=== PATIENT | male | born 1975 | race Caucasian/White ===

== ENCOUNTER 2017-03-02 06:58 | Day surgery (SDC) | payer BC ==
--- NOTE | 2017-02-26 14:08 | GHP ---
[f rep st] PREOP HISTORY AND PHYSICAL DATE OF ADMISSION: 03/02/2017 DATE OF PROCEDURE: 03/02/2017. PREOP DIAGNOSIS: Right inguinal hernia. HISTORY OF PRESENT ILLNESS: The patient is a 41-year-old man who presented to our clinic complaining of a right inguinal hernia. He denies any bulging in the area but felt discomfort in his right groi n since December 2016. He denies any fevers, chills, nausea, vomiting, change in bowel habits, or ivelisse p abdominal pain. He denies any overlying skin changes to the area. He did do some recent heavy lif ting when remodeling a home. This would be his first occurrence. PAST MEDICAL HISTORY: Plantar fasciitis. PAST SURGICAL HISTORY: Arthroscopic shoulder surgery. ALLERGIES: No known drug allergies. FAMILY HISTORY: Mother with breast cancer, heart disease. Father with skin cancer. SOCIAL HISTORY: He denies tobacco or recreational drug use. He does drink alcohol. 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 REVIEW OF SYSTEMS: Ten-point review of systems negative, aside from HPI. PHYSICAL EXAMINATION: GENERAL: Well-developed, well-nourished man, in no acute distress. HEENT: N ormocephalic, atraumatic. No hearing deficits. Pupils equal and round. No scleral icterus. Mucous membranes moist. NECK: Trachea midline. RESPIRATORY: Clear to auscultation bilaterally. No incr eased work of breathing. CARDIOVASCULAR: Regular rate and rhythm. No peripheral edema. ABDOMEN: Soft, nondistended, nontender. : Normal external male genitalia. Testes descended bilaterally. Reducible right inguinal hernia. No evidence of a left inguinal hernia on exam. NEURO: Grossly int act. PSYCH: Mood and affect normal. SKIN: Warm and dry. ASSESSMENT/PLAN: A 41-year-old man with a right inguinal hernia. We discussed open versus laparosco pic approach. We discussed risks of surgery, including, but not limited to, heart attack, stroke, bl ood clots or . We discussed risk of infection, bleeding, damage to surrounding structures, incl uding testicle swelling or recurrence. He understands the risks and would like to proceed. He will have a laparoscopic right, possible bilateral inguinal hernia repair with mesh. The patient was rimma tionally seen with Dr. Angela Mohr, who agrees to the above impression and plan. /[id number]/MODL
[2017-03-02] MEDS ORDERED: CHLORHEXIDINE GLUC HIBICLENS 118 ML BTL TP ONE (07:18)
[2017-03-02] MEDS ORDERED: ceFAZolin 2 GM/DEXTROSE 100 ML IV ONE (07:22)
[2017-03-02] MEDS ORDERED: LR 1,000 ML IV ONE (07:22)
[2017-03-02] MEDS ORDERED: LIDOCAINE 1% 2 ML INJ ID PRN (07:22)
--- NOTE | 2017-03-02 07:25 | PDHPUP ---
History & Physical Update H&P update statement: This history and physical update is based on an assessment of the patient which was completed after admission or registration (within 24 hours), but prior to the surgery/procedure. H&P update: H&P reviewed & patient examined, no change in patient's condition since H&P completed
[2017-03-02] MEDS ORDERED: BUPIVACAINE 0.5% 30 ML SDV ONE (08:08)
[2017-03-02] MEDS ORDERED: MIDAZOLAM 2 MG/2 ML VIAL ONE (08:59)
[2017-03-02] MEDS ORDERED: MIDAZOLAM 2 MG/2 ML VIAL IVP ONE (08:59)
--- NOTE | 2017-03-02 09:00 | PDANEPAE ---
ANE History of Present Illness patient presents for hernia surgery ANE Past Medical History - Cardiovascular History Hx Hypertension: No Hx Arrhythmias: No Hx Chest Pain: No Hx Coronary Artery / Peripheral Vascular Disease: No Hx CHF / Valvular Disease: No Hx Palpitations: No - Pulmonary History Hx COPD: No Hx Asthma/Reactive Airway Disease: No Hx Recent Upper Respiratory Infection: No Hx Oxygen in Use at Home: No Hx Sleep Apnea: No Sleep Apnea Screening Result - Last Documented: Negative - Neurologic History Hx Cerebrovascular Accident: No Hx Seizures: No Hx Dementia: No - Endocrine History Hx Diabetes: No - Renal History Hx Renal Disorders: No - Liver History Hx Hepatic Disorders: No - Neurological & Psychiatric Hx Hx Neurological and Psychiatric Disorders: No - Cancer History Hx Cancer: No - Congenital Disorder History Hx Congenital Disorders: No - GI History Hx Gastrointestinal Disorders: No - Chronic Pain History Chronic Pain: No - Surgical History Prior Surgeries: 2016 right shoulder labrum repair ANE Review of Systems Review of Systems: - Exercise capacity METS (RN): 6 METS ANE Patient History - Allergies Allergies/Adverse Reactions: No Known Allergies Allergy (Unverified 02/21/17 10:13) - Home Medications Home medications: home medication list seen and reviewed Home Medications: IBUPROFEN PRN 02/21/17 [Last Taken 02/23/17] - NPO status NPO Status: no food or drink >8 hours NPO Since - Liquids (Date): 03/01/17 NPO Since - Liquids (Time): 22:30 NPO Since - Solids (Date): 03/01/17 NPO Since - Solids (Time): 18:30 - Anes Hx Anes Hx: no prior problems - Smoking Hx Smoking Status: Never smoked - Family Anes Hx Family Hx Anesthesia Complications: none ANE Labs/Vital Signs - Vital Signs Blood Pressure: 102/73 Heart Rate: 99 Respiratory Rate: 14 O2 Sat (%): 99 Height: 193.04 cm Weight: 90.718 kg ANE Physical Exam - Airway Mallampati Score: Class 1 Mouth exam: normal dental/mouth exam - Pulmonary Pulmonary: no respiratory distress - Cardiovascular Cardiovascular: regular rate and rhythym - ASA Status ASA Status: I ANE Anesthesia Plan Anesthesia Plan: general endotracheal anesthesia (rba discussed)
[2017-03-02] MEDS ORDERED: PROPOFOL 200 MG/20 ML VIAL ONE (09:01)
[2017-03-02] MEDS ORDERED: fentaNYL 100 MCG/2 ML INJ ONE ×2 (09:01→10:46)
[2017-03-02] MEDS ORDERED: ROCURONIUM 50 MG/5 ML VIAL ONE (09:01)
[2017-03-02] MEDS ORDERED: LIDOCAINE 2% 5 ML SDV ONE (09:01)
[2017-03-02] MEDS ORDERED: DEXAMETHASONE 4 MG/ML VIAL ONE (09:29)
[2017-03-02] MEDS ORDERED: ONDANSETRON 4 MG/2 ML VIAL ONE (09:29)
[2017-03-02] MEDS ORDERED: KETOROLAC 30 MG/1 ML SDV ONE (09:31)
[2017-03-02] MEDS ORDERED: SUGAMMADEX SODIUM 200 MG/2 ML VIAL IVP ONE (09:31)
[2017-03-02] MEDS ORDERED: OXYCODONE/APAP 5/325 TAB PO PRN (09:50)
[2017-03-02] MEDS ORDERED: NALOXONE HCL 0.4 MG/ML INJ IVP PRN (09:50)
[2017-03-02] MEDS ORDERED: LR 500 ML IV PRN (09:50)
[2017-03-02] MEDS ORDERED: ONDANSETRON 4 MG/2 ML VIAL IVP PRN (09:50)
[2017-03-02] MEDS ORDERED: HYDROCODONE/APAP 5/325 TAB PO PRN (09:50)
[2017-03-02] MEDS ORDERED: fentaNYL 100 MCG/2 ML INJ IVP PRN (09:50)
--- NOTE | 2017-03-02 10:26 | POSTOPPROG ---
Post Op Note Date of Operation: 03/02/17 Surgeon: Angela Mohr Equipment Operation Instructor: alex Anesthesiologist: mayo Anesthesia: GET(General Endotracheal) Pre-op Diagnosis: rih Post-op Diagnosis: bih Indication: rih Procedure: lap bih with mesh Findings: indirect right direct left Inf/Abcess present in the surg proc area at time of surgery?: No EBL: Minimal Specimen(s): none
--- NOTE | 2017-03-02 10:46 | POSTANESTH ---
Post Anesthetic Evaluation Cardiovascular Status: Normal, Stable Respiratory Status: Normal, Stable Level of Consciousness/Mental Status: Can Participate in Eval Pain Control: Adequate, Prn Tx Ordered Nausea/Vomiting Control: Adequate, Prn Tx Ordered Complications Possibly Related to Anesthesia: None Noted
--- NOTE | 2017-03-02 11:19 | GOP ---
[f rep st] OPERATIVE REPORT DATE OF OPERATION: 03/02/2017 SURGEON: Angela Mohr MD ROD FILLER: ENEDINA Gonzalez. ANESTHESIA: General. ANESTHESIOLOGIST: Brock Hunter MD. PREOPERATIVE DIAGNOSIS: Right inguinal hernia. POSTOPERATIVE DIAGNOSIS: Initial right indirect inguinal hernia and left direct inguinal hernia. PROCEDURE PERFORMED: Laparoscopic bilateral inguinal hernia repair with mesh. FINDINGS: Very thin peritoneum. Left indirect inguinal hernia. Right direct inguinal hernia. SPECIMENS: None. ESTIMATED BLOOD LOSS: 5 cc. INDICATIONS: The patient is a 41-year-old man, who noted a right inguinal hernia. DESCRIPTION OF PROCEDURE: Patient was brought into the operating room, placed supine on the table, and general anesthesia was administered. His abdomen was prepped and draped in the usual sterile fashion. I infiltrated all sites with 0.5% Marcaine prior to making incisions. I made an incision at his umbilicus. I dissected down through the subcutaneous tissues and encountered the anterior rectus sheath. I divided this. I created a preperitoneal space with my finger. I inserted the balloon-tip trocar directed toward the pubis. I performed hand insufflation with the camera in place. I then exchanged this for the working balloon. He was placed in the Trendelenburg position. I placed a 5 mm suprapubic trocar and a 5 mm trocar between the 1st and 2nd trocars. I swept the pubis so it was free of investing tissues. I kept the inferior epigastric vessels anterior to the plane. He had a large right indirect inguinal hernia. The peritoneum was extremely thin and was breeched. I reduced it completely and reapproximated it with clips. Once the space was cleared, and the cord and cord structures were the only structures entering the inguinal canal, I placed a piece of laparoscopic self-fixating ProGrip mesh to cover the direct, indirect, and femoral spaces. It was tacked to the pubic tubercle and anterior. I then explored the left side, and he had a direct inguinal hernia. This was easily reduced. Again, the pubis was cleared and the cord and cord structures were the only structures entering the inguinal canal. I unrolled a piece of laparoscopic self-fixating ProGrip mesh to cover the direct, indirect, and femoral spaces. This was tacked to the pubic tubercle and anterior. The preperitoneal space was allowed to desufflate. He was placed back in the supine position. I opened his peritoneum at the umbilicus slightly to reduce intraabdominal air. Fascia closed with 0 PDS and skin closed with 4-0 Monocryl. Dermabond applied. He was awakened in the operating room, extubated, and transferred to PACU in stable condition. /[id number]/MODL MTDD
[2017-03-02] MEDS ORDERED: HYDROCODONE/APAP 5/325 TAB ONE (11:40)
[2017-03-02 12:07] VITALS: BP 115/66; PULSE 61; RESP 16; TEMP 97.9; O2SAT 100
== END 2017-03-02 12:05 | disposition home or self-care (01) ==
LOC: FSGY 06:58
PROVIDERS: ATTEND Surgery
PROC: 0YUA4JZ Supplement Bilateral Inguinal Region with Synthetic Substitute, Percutaneous Endoscopic Approach (ICD-10-PCS; principal; 2017-03-02 08:30)
DX: K40.20 Bilateral inguinal hernia, without obstruction or gangrene, not specified as recurrent (principal)
CPT/HCPCS: C1727; C1781; J0690; J1100; J1885; J2250; J2405; J2704; J3010